=== PATIENT | male | born 1960 | race African-American/Black ===

== ENCOUNTER 2023-04-05 11:28 | Emergency (ER) | payer MEDICARE, MEDICAID ==
[~2023-04-05] VITALS: Ht 170.2 cm; Wt 110.0 kg
[~2023-04-05 11:28] MED LIST: CARV-50 PO; CLON-528 PO; KEP500T PO; MESA250C2 PO; PRED20TA PO; ZES10T PO
[2023-04-05 11:39] VITALS: BP 176/93; PULSE 88; RESP 18; TEMP 98; O2SAT 96
== END 2023-04-05 12:14 | disposition left against medical advice (07) ==
LOC: ER 11:29
DX: M79.604 Pain in right leg (principal); Z53.21 Procedure and treatment not carried out due to patient leaving prior to being seen by health care provider
CPT/HCPCS: 99281

== ENCOUNTER 2024-05-09 13:14 | Emergency (ER) | payer MEDICARE, MEDICAID ==
[~2024-05-09] VITALS: Ht 170.2 cm; Wt 87.0 kg
[~2024-05-09 13:14] MED LIST changes: -CLON-528 PO; +CLON-850 PO
[2024-05-09 13:25] VITALS: BP 148/85; PULSE 93; RESP 16; TEMP 98.4; O2SAT 97
== END 2024-05-09 14:50 | disposition left against medical advice (07) ==
LOC: ER 13:14
DX: M79.601 Pain in right arm (principal); Z53.21 Procedure and treatment not carried out due to patient leaving prior to being seen by health care provider; Z88.8 Allergy status to other drugs, medicaments and biological substances

== ENCOUNTER 2024-07-08 17:46 | Emergency (ER) | payer MEDICARE, MEDICAID ==
[~2024-07-08] VITALS: Ht 170.2 cm; Wt 90.7 kg
[2024-07-08 17:46] VITALS: BP 141/71; PULSE 98; RESP 16; TEMP 98.5; O2SAT 100
[2024-07-08] MEDS: cyclobenzaprine 10mg tablet PO STA (18:27)
[2024-07-08] MEDS ORDERED: METH-798 PO (18:31)
== END 2024-07-08 18:33 | disposition home or self-care (01) ==
LOC: ER 17:46
DX: M54.59 Other low back pain (principal); I25.2 Old myocardial infarction; I50.9 Heart failure, unspecified; J45.909 Unspecified asthma, uncomplicated; G89.29 Other chronic pain; F41.9 Anxiety disorder, unspecified; F32.A Depression, unspecified; F15.90 Other stimulant use, unspecified, uncomplicated; F11.90 Opioid use, unspecified, uncomplicated; Z88.5 Allergy status to narcotic agent; Z88.6 Allergy status to analgesic agent; Z88.8 Allergy status to other drugs, medicaments and biological substances; Z79.899 Other long term (current) drug therapy; W01.0XXA Fall on same level from slipping, tripping and stumbling without subsequent striking against object, initial encounter; Y93.E1 Activity, personal bathing and showering; Y92.89 Other specified places as the place of occurrence of the external cause; Y99.9 Unspecified external cause status
CPT/HCPCS: 99284; A4421

== ENCOUNTER 2024-07-31 08:16 | Emergency (ER) | payer MEDICARE, MEDICAID ==
[~2024-07-31] VITALS: Ht 172.7 cm; Wt 91.5 kg
[~2024-07-31 08:16] MED LIST changes: +METH-798 PO
[2024-07-31 09:51] VITALS: BP 140/86; PULSE 86; RESP 18; TEMP 97.8; O2SAT 97
== END 2024-07-31 09:59 | disposition home or self-care (01) ==
LOC: ER 08:17
DX: Z93.2 Ileostomy status (principal); I50.9 Heart failure, unspecified; J45.909 Unspecified asthma, uncomplicated; F41.9 Anxiety disorder, unspecified; F32.A Depression, unspecified; F15.90 Other stimulant use, unspecified, uncomplicated; F11.90 Opioid use, unspecified, uncomplicated; Z88.5 Allergy status to narcotic agent; Z88.6 Allergy status to analgesic agent; Z88.8 Allergy status to other drugs, medicaments and biological substances; Z98.890 Other specified postprocedural states
CPT/HCPCS: 99281; A4421

== ENCOUNTER 2024-08-14 21:14 | Emergency (ER) | payer MEDICARE, MEDICAID ==
[~2024-08-14] VITALS: Ht 177.8 cm; Wt 120.0 kg
[2024-08-14 21:27] VITALS: BP 158/98; PULSE 100; RESP 22; TEMP 98.2; O2SAT 96
== END 2024-08-14 22:32 | disposition left against medical advice (07) ==
LOC: ER 21:15
DX: Z93.3 Colostomy status (principal); Z53.21 Procedure and treatment not carried out due to patient leaving prior to being seen by health care provider
CPT/HCPCS: A4371; A4398

== ENCOUNTER 2024-10-31 15:28 | Emergency (ER) | payer MEDICARE, MEDICAID ==
[~2024-10-31] VITALS: Ht 170.2 cm; Wt 100.0 kg
[2024-10-31 15:31] VITALS: BP 160/104; PULSE 108; RESP 18; TEMP 98.6; O2SAT 98
== END 2024-10-31 20:58 | disposition left against medical advice (07) ==
LOC: ER 15:29
DX: Z00.8 Encounter for other general examination (principal); Z88.5 Allergy status to narcotic agent; Z88.8 Allergy status to other drugs, medicaments and biological substances; Z53.21 Procedure and treatment not carried out due to patient leaving prior to being seen by health care provider

== ENCOUNTER 2025-05-04 18:38 | Emergency (ER) | payer MEDICARE, MEDICAID ==
[~2025-05-04] VITALS: Ht 172.7 cm; Wt 81.8 kg
[~2025-05-04 18:38] MED LIST changes: -CARV-50 PO; +CARV3.122 PO; -CLON-850 PO; +INSU100I77 SQ; -KEP500T PO; +LEVE500T PO; +LEVE750T PO; +LISI10TA27 PO; -MESA250C2 PO; +METF-438 PO; -METH-798 PO; -PRED20TA PO; -ZES10T PO
[2025-05-04 18:52] VITALS: BP 146/92; PULSE 101; RESP 18; O2SAT 97
[2025-05-04 19:19] LABS: MEAN PLATELET VOLUME 8.1 FL (7.4-10.4); RED CELL DISTRIBUTION WIDTH 16.2 % (11.5-14.5)
[2025-05-04 19:34] LABS: CREATININE 1.28 MG/DL (0.60-1.10); TOTAL CARBON DIOXIDE 21.2 MMOL/L (24-32); eCRCL 56 ML/MIN; eGFR 68 ML/MIN
--- NOTE | 2025-05-04 21:25 | RADIOLOGY REPORT ---
EXAM: CT CT HEAD INDICATION: Change in mentation TECHNIQUE: CT images of the head were obtained without administration of IV contrast. CT scans at this facility use dose modulation, iterative reconstruction, and/or weight based dosing when appropriate to reduce radiation dose to as low as reasonably achievable. COMPARISON: None FINDINGS: PARENCHYMA: No acute hemorrhage. There is no mass effect, midline shift, or herniation. There is preservation of the farrar white differentiation. Mild scattered hypoattenuation along the periventricular, centrum semiovale, and deep white matter tracts, which are nonspecific however statistically most likely represent chronic microvascular ischemic change. VENTRICLES: No hydrocephalus. EXTRA-AXIAL SPACES: No extra-axial fluid collections. OTHER: The bony structures are intact. Visualized portions of the paranasal sinuses and mastoid air cells are clear. Degenerative change of bilateral temporomandibular joints. IMPRESSION: 1. No CT evidence of an acute intracranial abnormality.
[2025-05-04 23:08] LABS: ETHANOL < 10 MG/DL (<10)
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
[2025-05-05 00:25] VITALS: TEMP 97.6
== END 2025-05-05 00:45 | disposition home or self-care (01) ==
LOC: ER 18:39
DX: Z02.89 Encounter for other administrative examinations (principal); J45.909 Unspecified asthma, uncomplicated; I25.2 Old myocardial infarction; G89.29 Other chronic pain; I50.9 Heart failure, unspecified; F41.9 Anxiety disorder, unspecified; F32.A Depression, unspecified; F15.90 Other stimulant use, unspecified, uncomplicated; F11.90 Opioid use, unspecified, uncomplicated; Z88.5 Allergy status to narcotic agent; Z88.8 Allergy status to other drugs, medicaments and biological substances; Z79.899 Other long term (current) drug therapy; V89.2XXA Person injured in unspecified motor-vehicle accident, traffic, initial encounter; Y93.89 Activity, other specified; Y92.89 Other specified places as the place of occurrence of the external cause; Y99.8 Other external cause status
CPT/HCPCS: 36415; 70450; 80053; 82948; 85025; 99284; G0480; 80320

== ENCOUNTER 2025-06-03 12:53 | Emergency (ER) | payer MEDICARE, MEDICAID ==
[~2025-06-03] VITALS: Ht 182.9 cm; Wt 79.0 kg
[2025-06-03 12:55] VITALS: TEMP 98
--- NOTE | 2025-06-03 13:06 | Physician Documentation ---
History of Present Illness ~ Chief Complaint: See Chief Complaint Stated Complaint: SUBSTANCE ABUSE Time Seen by MD: 13:04 Primary Medical Doctor: [facility] This is a 64-year-old male who is brought to the emergency department per EMS after staff called due to concerns for smelling a strong strange smell in his room, finding a needle, finding evidence of marijuana use, concerned for meth use. The patient is in this facility for osteomyelitis of the left lower extremity. Staff there noted slurred speech and off behavior. He was brought from [facility]. Per EMS, negative stroke scale. Medication Reconciliation Allergies: Coded Allergies: codeine (Verified Allergy, Unknown, 10/31/24) morphine (Verified Allergy, Unknown, 10/31/24) nalbuphine HCl (Verified Allergy, Unknown, 10/31/24) naproxen (Verified Allergy, Unknown, 10/31/24) tramadol HCl (Verified Allergy, Unknown, 10/31/24) Scheduled Carvedilol (Carvedilol), 1 TAB PO BID, (Reported) Insulin Degludec (Insulin Degludec Pen (U-100)), 70 UNITS SQ HS, (Reported) Levetiracetam (Levetiracetam), 1 TAB PO BID, (Reported) Levetiracetam (Levetiracetam), 1 TAB PO BID, (Reported) Lisinopril (Lisinopril), 1 TAB PO DAILY, (Reported) Metformin HCl (Metformin HCl), 1 TAB PO BID, (Reported) Past Medical History Past Medical History: *CARDIOVASCULAR*, Congestive Heart Failure, Myocardial Infarction, Asthma, *GI/HEPATOBILIARY*, GI Bleed, Hernia, Chronic Pain, *INFECTIOUS DZ*, Anxiety, Depression Past Surgical History: abdominal surgery Alcohol Use: Rarely Drug Use: methamphetamine, heroin Review of Systems ROS As stated above in the HPI, otherwise all systems are reviewed and negative. Physical Exam Vital Signs: Temperature: 98.0, Source: Temporal, Heart Rate: 94, Respiratory Rate: 16, BP: 126/78, Pulse Oximetry: 98, Weight: 79.000 Oxygen Flow Rate: 0 Physical Exam General: Alert, no apparent distress. HEENT: PERRL, EOMI, no injection, moist mucous membranes. Neck: Full range of motion. Respiratory: Lungs clear, no respiratory distress. Chest: No accessory muscle use. Cardiovascular: Regular rate and rhythm, no murmurs. Gastrointestinal: Soft, nontender, nondistended. Bowels sounds present. Extremities: Normal range of motion, no deformity. Neurologic: Oriented x4. Psychiatric: Normal mood and affect. Skin: Normal color, warm and dry. No edema, no ecchymosis. Dressing LLE. Progress Results/Orders Results/Orders Orders - TAYLOR HANLEY NP Drug Screen, Urine (06/03/25 13:03) Urinalysis, Cult If Indicated (06/03/25 13:03) CMP (06/03/25 13:03) Cbc/Diff (06/03/25 13:03) Accucheck (06/03/25 ) Vital Signs 06/03/25 06/03/25 12:55 13:25 Temp 98.0 Pulse 94 85 Resp 16 18 B/P (MAP) 126/78 138/88 (105) Pulse Ox 98 98 O2 Flow Rate 0 Laboratory Tests Test 06/03/25 13:24 Glucometer 145 H Medical Decision Making Additional information obtaine: old records Findings EMS run sheet reviewed. Discussed patient care with fire extinguisher repairer who transported him. Differential Dx:Considerations: Include: other Additional Information Sent from his acute care facility primarily due to concerns for drug use. They reported that initially he was acting abnormally for them, deviation from his baseline. On exam, the patient was found to be alert, oriented, no focal deficits, no slurred speech, no concerns whatsoever. He declined a workup to include urinalysis and urine drug screen. Glucose was 141. Patient then departed the department, declining any further workup. Departure Time of Disposition: 13:27 Disposition: 01 HOME / SELF CARE / HOMELESS Impression: Primary Impression: Altered level of consciousness Condition: Stable Discharge Instructions: Altered Mental Status Additional Instructions: You were sent to the emergency department by your facility due to concerns for altered mental status. On exam, you were found to be alert and oriented with no focal deficits. Negative stroke scale. You are okay to return your facility. Your glucose was 141. Referrals: NO PRIMARY CARE PROVIDER (PCP) Education Educated: Patient Educated regarding: diagnosis, treatment, prognosis, need for follow up Signature Scribe Signature: x Attestation: The note accurately reflects work and decisions made by me.Taylor Mcnamara NP 06/03/25 13:59 TAYLOR HANLEY NP Jun 03, 2025 13:06
[2025-06-03 13:25] VITALS: BP 138/88; PULSE 85; RESP 18; O2SAT 98
== END 2025-06-03 13:51 | disposition home or self-care (01) ==
LOC: ER 12:53
DX: R40.4 Transient alteration of awareness (principal); G89.29 Other chronic pain; I25.2 Old myocardial infarction; I50.9 Heart failure, unspecified; F15.90 Other stimulant use, unspecified, uncomplicated; F11.90 Opioid use, unspecified, uncomplicated; F41.9 Anxiety disorder, unspecified; F32.A Depression, unspecified; Z88.5 Allergy status to narcotic agent; Z88.6 Allergy status to analgesic agent; Z88.8 Allergy status to other drugs, medicaments and biological substances; Z79.899 Other long term (current) drug therapy; Z79.4 Long term (current) use of insulin
CPT/HCPCS: 82948; 99283

== ENCOUNTER 2025-06-03 18:03 | Emergency (ER) | payer MEDICARE, MEDICAID ==
[~2025-06-03] VITALS: Ht 170.2 cm; Wt 94.0 kg
[2025-06-03] MEDS: normal saline 1000ML IV soln IVB ONE (18:40)
--- NOTE | 2025-06-03 19:04 | RADIOLOGY REPORT ---
EXAM: DI CHEST,SINGLE VIEW TECHNIQUE: Single frontal chest radiograph CLINICAL HISTORY: weakness COMPARISON: None FINDINGS/IMPRESSION: The lungs are clear. The cardiomediastinal silhouette is prominent, likely accentuated by technique. No pleural effusion or pneumothorax. No acute osseous abnormality.
--- NOTE | 2025-06-03 19:18 | Physician Documentation ---
History of Present Illness General Chief Complaint: See Chief Complaint Stated Complaint: CLOSTOMY BAG ISSUES Time Seen by MD: 18:14 Primary Medical Doctor: GEOVANNA Mode of Arrival: EMS History of Present Illness Initial Comments History, review of systems, physical examination are very limited due to patient's non participation versus patient's clinical condition. Evidently this patient see that here earlier today and subsequently discharged. [place] was [place] in [place] He is brought in for evaluation of seizure-like activity. Evidently the patient is supposed to go back to [facility], appears [place]. The patient mumbles, twitching, nearly impossible to understand, does not seem to answer any questions, able follow commands. Medication Reconciliation Allergies: Coded Allergies: codeine (Verified Allergy, Unknown, 10/31/24) morphine (Verified Allergy, Unknown, 10/31/24) nalbuphine HCl (Verified Allergy, Unknown, 10/31/24) naproxen (Verified Allergy, Unknown, 10/31/24) tramadol HCl (Verified Allergy, Unknown, 10/31/24) Scheduled Carvedilol (Carvedilol), 1 TAB PO BID, (Reported) Insulin Degludec (Insulin Degludec Pen (U-100)), 70 UNITS SQ HS, (Reported) Levetiracetam (Levetiracetam), 1 TAB PO BID, (Reported) Levetiracetam (Levetiracetam), 1 TAB PO BID, (Reported) Lisinopril (Lisinopril), 1 TAB PO DAILY, (Reported) Metformin HCl (Metformin HCl), 1 TAB PO BID, (Reported) Past Medical History Past Medical History: *CARDIOVASCULAR*, Congestive Heart Failure, Myocardial In farction, Asthma, *GI/HEPATOBILIARY*, GI Bleed, Hernia, Chronic Pain, *INFECTIOUS DZ*, Anxiety, Depression Past Surgical History: abdominal surgery Smoking: Cigarettes Alcohol Use: Rarely Drug Use: methamphetamine, heroin Review of Systems ROS Limited as above Physical Exam Physical Exam Vital Signs: Temperature: 97.6, Source: Axillary, Heart Rate: 90, Respiratory Rate: 16, BP: 132/85, Pulse Oximetry: 97, Weight: 94.000 Oxygen Flow Rate: 0 Physical Exam GENERAL: Awake but rather somnolent, no apparent distress, chronically ill appearing, does not really answer questions, does follows commands appropriately. Examined in bed 11. HEENT: Atraumatic, normocephalic, pupils equal, extraocular muscles intact, sclerae anicteric, mucus membranes moist, oropharynx is clear, no stridor. NECK: supple, full active range of motion, trachea midline, no thyromegaly, no lymphadenopathy, no JVD. CARDIOVASCULAR: regular rate/rhythm, no murmurs/gallops/rubs, Pulses are 2+ in all extremities and symmetric. Capillary refill less than 2 seconds. PULMONARY: Nonlabored, good air movement ,no respiratory distress, speaking in full sentences, clear to auscultation bilaterally, no wheezing, no ronchi, no rales, no accessory muscle use. GASTROINTESTINAL: Soft, non-tender, non-distended, normal active bowel sounds, no organomegaly, no pulsatile masses, no CVA tenderness. NEUROLOGIC: Awake with altered versus postictal mental status. Normal facial symmetry. Moves all extremities symmetrically and with purpose. No truncal ataxia. Speech is fluid without evidence of dysarthria or aphasia, no focal deficits appreciated. MUSCULOSKELETAL: There is full range of motion of all extremities. There is no joint pain or joint swelling or joint erythema. There is no muscle pain or tenderness or swelling. EXTREMITIES: warm, well-perfused, no cyanosis, no clubbing, no edema, no acute deformities. Skin: warm, dry, no rashes or lesions, no jaundice, no petechiae orpurpura. No ecchymosis. PSYCHIATRIC: Unable to assess Focused exam: Left lower extremity colostomy noted. Multiple prior well-healed surgical scars including scar from ileostomy noted. Progress Results/Orders Results/Orders Orders - JAYA RICHARDS DO Drug Screen, Urine (06/03/25 18:38) Urinalysis, Cult If Indicated (06/03/25 18:38) Chest,Single View (06/03/25 18:38) Monitor (06/03/25 18:38) Saline Lock (06/03/25 18:38) Ct Head (06/03/25 18:38) Completed Orders - JAYA RICHARDS DO Electrocardiogram (06/03/25 18:38) Cbc/Diff (06/03/25 18:38) Pt Inr (06/03/25 18:38) PTT (06/03/25 18:38) Chest,Single View (06/03/25 18:38) Normal Saline 1000ml (0.9% Sodium Chlori (06/03/25 18:40) Ct Head (06/03/25 18:38) Hs Troponin I W Calculations (06/03/25 18:38) Hs Troponin I W Calculations (06/03/25 20:38) CMP (06/03/25 20:18) Ethanol (06/03/25 20:18) MG (06/03/25 20:18) PBNP (06/03/25 20:18) Medications Received in ER Medications (Trade) Dose Ordered Sig/Lucius Route PRN Reason Start Time Stop Time Status Last Admin Dose Admin (0.9% sodium chloride (NS) 1000ml IV soln) 1,000 ml ONCE ONCE IVB 06/03/25 18:40 06/03/25 18:42 DC 06/03/25 18:40 1,000 ML Vital Signs 06/03/25 06/03/25 06/03/25 06/03/25 18:13 18:22 18:45 20:39 Temp 97.6 97.6 Pulse 90 93 Resp 19 16 12 14 B/P (MAP) 132/85 133/85 (101) Pulse Ox 97 96 O2 Flow Rate 0 0 Laboratory Tests Test 06/03/25 19:39 06/03/25 20:38 White Blood Count 4.0 L Red Blood Count 4.11 L Hemoglobin 12.1 L Hematocrit 35.5 L Mean Corpuscular Volume 86.4 Mean Corpuscular Hemoglobin 29.5 Mean Corpuscular Hemoglobin Concent 34.2 Red Cell Distribution Width 14.9 H Platelet Count 93 L Mean Platelet Volume 8.8 Neutrophils (%) (Auto) 55.8 Lymphocytes (%) (Auto) 29.6 Monocytes (%) (Auto) 7.5 Eosinophils (%) (Auto) 6.4 H Basophils (%) (Auto) 0.7 Neutrophils # (Auto) 2.2 Lymphocytes # (Auto) 1.2 Monocytes # (Auto) 0.3 Eosinophils # (Auto) 0.3 Basophils # (Auto) 0.0 CBC Comment Prothrombin Time 10.7 INR International Normalized Ratio 1.0 Activated Partial Thromboplast Time 29 Coagulation Comments Troponin I High Sensitivity 11 12 Sodium Level 141 Potassium Level 4.4 Chloride Level 106 Carbon Dioxide Level 24.8 Anion Gap 10 Blood Urea Nitrogen 24 H Creatinine 1.19 H Estimated GFR/1.73 m2 74 BUN/Creatinine Ratio 20.2 H Glucose Level 162 H Calcium Level 8.9 Magnesium Level 1.8 Total Bilirubin 0.6 Aspartate Amino Transf (AST/SGOT) 22 Alanine Aminotransferase (ALT/SGPT) 25 Alkaline Phosphatase 95 Troponin I High Sens Percent Delta 9 Troponin I Hi Sens Absolute Change 1 Pro-B-Type Natriuretic Peptide 86 Total Protein 8.0 Albumin 3.5 Globulin 4.5 H Albumin/Globulin Ratio 0.8 L Chemistry Comments Ethyl Alcohol Level < 10 EKG/XRAY/CT/US/VASC/MRI EKG : Additional Comment EKG was obtained and interpreted by myself showing sinus rhythm, rate of 86, normal CA interval, narrow QRS, no QT prolongation, borderline left axis, no STEMI, polymorphic PVC is noted. Q-wave in three and AVF noted. Medical Decision Making Additional information obtaine: old records, other (EMS) Findings Facility Status: ED Holds, RME process The plan was discussed with the patient, who demonstrates clear understanding of the plan and is in agreement with the plan unless otherwise noted in the chart. All questions have been answered, all concerns were addressed unless otherwise documented. I was available throughout their ED stay for frequent reassessment and questions. Differential Diagnoses (considered and possible or likely): [Breakthrough seizure, postictal state, dehydration, electrolyte derangement, alcohol intoxication, drug toxidrome, intracranial neoplasm, subdural, subarachnoid, urinary tract infection, pneumonia, occult bacteremia, less likely meningitis or encephalitis] ??Differential Diagnoses (considered and unlikely, not requiring evaluation currently): [No evidence of lateralizing signs to suspect a stroke] MDM Data Please see HPI for the following: Independent Historians and external Records Review. Historian: Limited information from patient Independent Historians: ?[EMS, record review] Medication Management: [Reviewed medication list] Social History and determinants: [Reviewed] Please see the body of the note for the following: Any independent interpretations of ECG, imaging studies. All vitals signs/haemodynamics, ordered tests were independently reviewed and interpreted by myself. Nursing triage complaint and vitals reviewed, additional nursing notes were rev iewed as available and I agree unless otherwise noted or documented in contradiction in the chart Vital Signs: Independently reviewed Labs: Independently interpreted Imaging: Independently interpreted Old Medical Records: Independently reviewed, see HPI for relevant summary and information Pulse Oximetry: [98%] interpreted as [normal on room air] by me [Ict Security Specialist: [Regular Rate, Regular rhythm, no ectopy, NSR] reviewed and interpreted by me] Additionally notably showing: [Hemodynamics reviewed. The patient isn't febrile, not tachycardic, no evidence of hypotension respiratory distress. CBC shows no leukocytosis, normal hemoglobin, slightly decreased platelets. Coagulation panel was unremarkable. Chemistry notable for dehydration. Initial repeat troponins are negative. Ethanol is negative. Advanced imaging of the head did not reveal any acute intracranial process. Chest x-ray is unremarkable.] Tests considered but not ordered include: [Not applicable] Social Determinants of Health Impact: Patient was evaluated in [facility] [place] to healthcare due to below par ratio of patient to medical providers. [] Comorbid Conditions Impacting Present Evaluation and Care/Treatment: [History of seizures] Management Discussions with other Healthcare Providers: [None] Treatment and Disposition Medication Management (Given or considered): []. See EMR for details Consideration for Hospitalization/Escalation/Deescalation of Care: Admission for observation has been considered, [however the patient is able to tolerate p.o., their symptoms are controlled, they are able to rely on oral medications, and their chief complaint/diagnosis can be managed on outpatient basis.] ?ED Course:?[The patient's mentation had markedly improved. He is back to baseline. He refuses to provide us with a urine sample.] ?Shared decision making: Patient is hemodynamically stable for discharge home with follow with their primary care provider. [ ] Specific and cautious return precautions provided and discussed with full understanding. Any incidental findings were also discussed and follow up recommendations given. [] All questions answered. Patient/family were able to verbalize back return precautions. Patient/family agree to plan. Copies of imaging and laboratory studies were provided. Code status:?FULL Please see the full Electronic Medical Record for full details of nursing documentation, medications list, other records of complete past medical history and conditions, vital signs, laboratory studies, and any radiologic study interpretations by radiologists. Portions of this note were completed using [employer] dictation software and as a result there may exist minor errors in spelling. I have reviewed elements of past family and social history and agree as included in note. Differential Diagnosis See body of main note for differential diagnosis Departure Impression: Primary Impression: Transient alteration of awareness Additional Impressions: Dehydration Breakthrough seizure Condition: Improved Discharge Instructions: Confusion Referrals: NO PRIMARY CARE PROVIDER (PCP) Education Educated: Patient Educated regarding: diagnosis, treatment, prognosis, need for follow up Signature Scribe Signature: No scribe Attestation: The note accurately reflects work and decisions made by me.Jaya Richards, 06/03/25 19:18 JAYA RICHARDS DO Jun 03, 2025 19:18
--- NOTE | 2025-06-03 19:31 | RADIOLOGY REPORT ---
EXAM: CT CT HEAD INDICATION: aloc/seizure TECHNIQUE: CT of the head without intravenous contrast. Radiation Dose Information: CT Dose: CTDI volume is 65.8 mGy. Dose-length product is 1274.4 mGy*cm The dose indicators for CT are the volume Computed Tomography (CT) Dose Index (CTDIvol) and the Dose Length Product (DLP), and are measured in units of mGy and mGy-cm, respectively. These indicators are not patient dose, but values generated from the CT scanner acquisition factors. The report includes radiation exposure data for exposures received during this examination. COMPARISON: CT CT HEAD on DOS: FINDINGS: No acute territorial infarct, intracranial hemorrhage, or mass effect. There are global involutional changes with compensatory prominence of the ventricles and sulci. Patchy periventricular and subcortical white matter hypoattenuation is nonspecific but may be related to small vessel ischemic disease. The orbits are normal. The paranasal sinuses and mastoid air cells are clear. The osseous structures are unremarkable. IMPRESSION: 1. No acute territorial infarct, intracranial hemorrhage, or mass effect. 2. Age-related involutional changes. Chronic microvascular changes. 3. If clinical symptoms persist, MRI may be beneficial in further evaluation.
--- NOTE | 2025-06-03 19:47 | ELECTROCARDIOGRAPH REPORT ---
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 BEBE Sanford Measurements Intervals [place] Rate: 86 P: 29 HI: 200 QRS: -25 QRSD: 98 T: 51 QT: 398 QTc: 476 Interpretive Statements Sinus rhythm Multiform ventricular premature complexes Abnormal R-wave progression, late transition Inferior infarct, old Electronically Signed On 06-05-2025 18:39:[address] BEBE Sanford Please click the below link to view image of tracing.
[2025-06-03 20:18] LABS: MEAN PLATELET VOLUME 8.8 FL (7.4-10.4); RED CELL DISTRIBUTION WIDTH 14.9 % (11.5-14.5)
[2025-06-03 20:28] LABS: APTT 29 SECONDS (22-32); INR 1.0 INR
[2025-06-03 22:24] LABS: CREATININE 1.19 MG/DL (0.60-1.10); TOTAL CARBON DIOXIDE 24.8 MMOL/L (24-32); eCRCL 58 ML/MIN; eGFR 74 ML/MIN
[2025-06-03 22:29] LABS: PRO BRAIN NATRIURETIC PEPTIDE 86 PG/ML (0-125)
[2025-06-03 22:31] LABS: ETHANOL < 10 MG/DL (<10)
[2025-06-03 23:30] VITALS: BP 130/81; PULSE 91; RESP 18; O2SAT 96
[2025-06-04 00:11] VITALS: TEMP 97.6
== END 2025-06-04 00:16 | disposition home or self-care (01) ==
LOC: ER 18:04
DX: G40.909 Epilepsy, unspecified, not intractable, without status epilepticus (principal); E86.0 Dehydration; R40.4 Transient alteration of awareness; G89.29 Other chronic pain; I25.2 Old myocardial infarction; I50.9 Heart failure, unspecified; F17.210 Nicotine dependence, cigarettes, uncomplicated; F15.90 Other stimulant use, unspecified, uncomplicated; F11.90 Opioid use, unspecified, uncomplicated; F41.9 Anxiety disorder, unspecified; F32.A Depression, unspecified; Z88.5 Allergy status to narcotic agent; Z88.8 Allergy status to other drugs, medicaments and biological substances; Z79.899 Other long term (current) drug therapy; Z79.84 Long term (current) use of oral hypoglycemic drugs
CPT/HCPCS: 36415; 70450; 71045; 80053; 83735; 83880; 84484; 85025; 85610; 85730; 93005; 96360; 99285; A4421; G0480; J7030; 80320

== ENCOUNTER 2025-06-19 16:20 | Emergency (ER) | payer MEDICARE, MEDICAID ==
[~2025-06-19] VITALS: Ht 182.9 cm; Wt 108.0 kg
--- NOTE | 2025-06-19 16:34 | Physician Documentation ---
History of Present Illness General Stated Complaint: POISIONING/ SEIZURE Time Seen by MD: 16:34 Primary Medical Doctor: [facility] History of Present Illness Initial Comments 64 year old male with history of seizures presents to the emergency department via EMS brought in from [facility]. EMS states that the story that they were given is that the patient went to the bathroom and left his water bottle in the lobby. When he returned he drank the water and reported feeling drugged. Per EMS bystanders endorse that the patient had a change of behavior since his arrival at the [facility]. When asked the patient complains of abdominal pain, stating that he has been feeling sick. Additionally the patient complains of fevers. Medication Reconciliation Allergies: Coded Allergies: codeine (Verified Allergy, Unknown, 10/31/24) morphine (Verified Allergy, Unknown, 10/31/24) nalbuphine HCl (Verified Allergy, Unknown, 10/31/24) naproxen (Verified Allergy, Unknown, 10/31/24) tramadol HCl (Verified Allergy, Unknown, 10/31/24) Scheduled Carvedilol (Carvedilol), 1 TAB PO BID, (Reported) Insulin Degludec (Insulin Degludec Pen (U-100)), 70 UNITS SQ HS, (Reported) Levetiracetam (Levetiracetam), 1 TAB PO BID, (Reported) Levetiracetam (Levetiracetam), 1 TAB PO BID, (Reported) Lisinopril (Lisinopril), 1 TAB PO DAILY, (Reported) Metformin HCl (Metformin HCl), 1 TAB PO BID, (Reported) Past Medical History Past Medical History: *CARDIOVASCULAR*, Congestive Heart Failure, Myocardial Infarction, Asthma, *GI/HEPATOBILIARY*, GI Bleed, Hernia, Chronic Pain, *INFECTIOUS DZ*, Anxiety, Depression Past Surgical History: abdominal surgery Smoking: Cigarettes Alcohol Use: Rarely Drug Use: methamphetamine, heroin Review of Systems All Other Systems at this time: Reviewed and Negative ROS Patient was asked, but denied any other symptoms. All other systems are negative other than those mentioned above. Physical Exam Physical Exam Vital Signs: RN Vital Signs have been reviewed: Yes Pulse Oximetry Reflects: adequate oxygenation Physical Exam VITALS: Reviewed and as above. GENERAL: Alert, no apparent distress. HEENT: Normocephalic, atraumatic. PERRL, EOMI. Dry mucosa, no erythema. RESPIRATORY: Lungs clear, normal breath sounds, no respiratory distress. CHEST: No accessory muscle use, no retractions. CV: Tachycardic, regularlyy irregular. No edema, no murmur, No: JVD GI: Soft,diffuse tenderness with left cholostomy bag. bowel sounds present. No rebound, guarding, or rigidity. BACK: No CVA tenderness, no swelling. MUSCULOSKELETAL: No deformities, no edema SKIN: Warm and dry, no rash. NEURO: Mild osteroneal tremors with gargled speech. PSYCH: Normal mood and affect, no agitation. Progress Results/Orders Results/Orders Completed Orders - EROS CENTENO MD Diazepam Inj (Valium Inj) (06/19/25 19:00) Potassium Cl Sr Tablet (K-Dur Tablet) (06/19/25 19:45) Medications Received in ER Medications (Trade) Dose Ordered Sig/Lucius Route PRN Reason Start Time Stop Time Status Last Admin Dose Admin (0.9% sodium chloride (NS) 1000ml IV soln) 2,000 ml ONCE ONCE IVB 06/19/25 16:40 06/19/25 16:41 DC 06/19/25 17:33 2,000 ML Acetaminophen 100 ml @ 400 mls/hr ONCE ONCE IV 06/19/25 16:40 06/19/25 16:54 DC 06/19/25 17:20 400 MLS/HR Sodium Chloride 1,000 ml @ 1,000 mls/hr ONCE ONCE IV 06/19/25 16:40 06/19/25 17:39 DC 06/19/25 17:20 1,000 MLS/HR Levetiracetam 100 ml @ 400 mls/hr ONCE STAT IV 06/19/25 16:46 06/19/25 17:00 DC 06/19/25 17:33 400 MLS/HR (K-DUR tablet) 20 meq ONCE STAT PO 06/19/25 19:45 06/19/25 19:47 DC 06/19/25 19:59 20 MEQ Vital Signs 06/19/25 06/19/25 06/19/25 06/19/25 16:29 16:30 16:37 17:00 Temp 102.3 Pulse 126 112 109 Resp 27 20 15 16 B/P (MAP) 133/81 133/81 (98) 142/107 (119) Pulse Ox 94 97 96 O2 Flow Rate 0 06/19/25 06/19/25 06/19/25 06/19/25 17:26 17:46 17:51 18:00 Temp 98.3 Pulse 117 106 106 Resp 31 18 29 B/P (MAP) 137/71 (93) 141/73 (95) 143/74 (97) Pulse Ox 96 98 97 97 O2 Delivery Nasal Cannula* O2 Flow Rate 2 FiO2 N/A 06/19/25 06/19/25 06/19/25 06/19/25 18:15 18:43 19:01 19:16 Pulse 106 103 114 110 Resp 24 18 16 16 B/P (MAP) 128/70 (89) 114/60 (78) 131/65 (87) 119/80 (93) Pulse Ox 97 98 97 100 O2 Flow Rate 0 0 0 06/19/25 06/19/25 06/19/25 19:30 19:41 20:12 Temp 99.3 Pulse 95 108 107 Resp 17 27 16 B/P (MAP) 172/97 (122) 166/99 (121) 140/56 Pulse Ox 96 100 98 O2 Flow Rate 0 0 Laboratory Tests Test 06/19/25 17:03 06/19/25 17:17 06/19/25 18:35 06/19/25 18:51 Lactic Acid Level 1.6 White Blood Count 6.0 Red Blood Count 4.00 L Hemoglobin 11.3 L Hematocrit 34.9 L Mean Corpuscular Volume 87.2 Mean Corpuscular Hemoglobin 28.3 Mean Corpuscular Hemoglobin Concent 32.5 L Red Cell Distribution Width 16.4 H Platelet Count 253 Mean Platelet Volume 7.8 Neutrophils (%) (Auto) 89.7 H Lymphocytes (%) (Auto) 5.7 L Monocytes (%) (Auto) 3.2 Eosinophils (%) (Auto) 1.0 Basophils (%) (Auto) 0.4 Neutrophils # (Auto) 5.4 Lymphocytes # (Auto) 0.3 L Monocytes # (Auto) 0.2 Eosinophils # (Auto) 0.1 Basophils # (Auto) 0.0 CBC Comment Sodium Level 140 Potassium Level 3.1 L Chloride Level 107 Carbon Dioxide Level 25.5 Anion Gap 8 Blood Urea Nitrogen 16 Creatinine 1.18 H Estimated GFR/1.73 m2 75 BUN/Creatinine Ratio 13.6 Glucose Level 55 L Calcium Level 8.6 Troponin I High Sensitivity 21 Pro-B-Type Natriuretic Peptide 975 H Albumin 3.1 L Procalcitonin 0.20 Chemistry Comments Ethyl Alcohol Level < 10 Influenza Type A Antigen Negative Influenza Type B Antigen Negative Glucometer 66 L Test 06/19/25 19:16 06/19/25 19:18 Glucometer 128 H Urine Specimen Description Non-specified Urine Color Yellow Urine Clarity Clear Urine pH 5.5 Urine Specific [place] 1.015 Urine Protein Negative Urine Glucose (UA) Negative Urine Ketones Negative Urine Occult Blood Negative Urine Nitrite Negative Urine Bilirubin Negative Urine Urobilinogen 0.2 Urine Leukocyte Esterase Negative Urine Culture Indicated Not ind Volume Urine Centrifuged 10 ml Urine Comment Urine Opiates Screen Negative Urine Methadone Screen Negative Urine Fentanyl Screen Negative Urine Barbiturates Screen Negative Urine Phencyclidine Screen Negative Urine Amphetamines Screen Positive Urine Benzodiazepines Screen Negative Urine Cocaine Screen Negative Urine Cannabinoids Screen Negative Drug Screen Comment Microbiology Date/Time Source Procedure Growth Status 06/19/25 17:17 Blood Iv Start Blood Culture - Preliminary NEGATIVE (LESS THAN 24 HOURS) Resulted EKG/XRAY/CT/US/VASC/MRI EKG : Additional Comment 1636[facility] ssinus rhythym with pvc at a rate of 122bpm. PVCs present with right axis deviation. No ST abnormalities. Chest X-Ray : Interpreted By: radiologist Views: 1 VIEW Additional Comments EXAM: DI CHEST,SINGLE VIEW TECHNIQUE: Single frontal chest radiograph CLINICAL HISTORY: ALOC COMPARISON: DI CHEST,SINGLE VIEW on DOS: 06/03/25 FINDINGS/IMPRESSION: Artifact is seen overlying the lung apices referable to patient's chain. Unchanged prominent cardiomediastinal silhouette. The lungs are clear. No pleural effusion or pneumothorax. No acute osseous abnormality. Electronically Signed by:LUH SO MD Date & Time: 06/19/251736 Dictated by: LUH SO MD Dictation date and time: 06/19/251736 Primary Care Provider: NO PRIMARY CARE PROVIDER cc: BOBBI CHOW MD ~ Medical Decision Making Additional information obtaine: old records Findings Patient presents to the emergency room with agitation and fever as per HPI. Differentials include but are not limited to meningitis, influenza, viral illness, urinary tract infection, drug intoxication therefore emergent labs ordered which were reassuring aside from elevation patient's temperature and positive amphetamines. He has presented similarly previously and refused to give urine and I suspect that he does not engage in recreational amphetamines and this is why he is here today. Urinalysis is clear as that has chest x-ray and I can not find a bacterial source for patient's infection and I believe this is viral in nature. Flu negative. No meningismus on physical exam Differential Diagnosis j Departure Impression: Primary Impression: Fever Qualified Codes: R50.9 - Fever, unspecified Additional Impressions: Confusion Positive amphetamine Condition: Stable Discharge Instructions: Fever, Adult Additional Instructions: Tylenol for fevers aches and pains. Referrals: NO PRIMARY CARE PROVIDER (PCP) Signature Scribe Signature: no scribe Attestation: The note accurately reflects work and decisions made by me.Eros Centeno MD 06/19/25 21:54 BOBBI CHOW MD Jun 19, 2025 16:34 DENG KOEHLER Jun 19, 2025 19:50 EROS CENTENO MD Jun 19, 2025 20:52
[2025-06-19] MEDS ORDERED: acetaminophen 1,000mg/100ml IV 100 ML IV ONE (16:40)
[2025-06-19] MEDS: acetaminophen 1,000mg/100ml IV 100 ML IV ONE (17:20)
[2025-06-19] MEDS: normal saline 1000ml 1,000 ML IV ONE (17:20)
[2025-06-19 17:27] LABS: MEAN PLATELET VOLUME 7.8 FL (7.4-10.4); RED CELL DISTRIBUTION WIDTH 16.4 % (11.5-14.5)
[2025-06-19] MEDS: normal saline 1000ML IV soln IVB ONE (17:33)
[2025-06-19] MEDS: levetiracetam-NACL1000mg/100ml 100 ML IV STA (17:33)
--- NOTE | 2025-06-19 17:40 | RADIOLOGY REPORT ---
EXAM: DI CHEST,SINGLE VIEW TECHNIQUE: Single frontal chest radiograph CLINICAL HISTORY: ALOC COMPARISON: DI CHEST,SINGLE VIEW on DOS: 06/03/25 FINDINGS/IMPRESSION: Artifact is seen overlying the lung apices referable to patient's chain. Unchanged prominent cardiomediastinal silhouette. The lungs are clear. No pleural effusion or pneumothorax. No acute osseous abnormality.
[2025-06-19 17:50] LABS: CREATININE 1.18 MG/DL (0.60-1.10); ETHANOL < 10 MG/DL (<10); PRO BRAIN NATRIURETIC PEPTIDE 975 PG/ML (0-125); TOTAL CARBON DIOXIDE 25.5 MMOL/L (24-32); eCRCL 69 ML/MIN; eGFR 75 ML/MIN
[2025-06-19] MEDS: diazepam inj 5 MG/ML inj. IV ONE (19:00)
[2025-06-19 19:11] LABS: INFLUENZA TYPE A ANTIGEN RAPID NEGATIVE (Negative); INFLUENZA TYPE B ANTIGEN RAPID NEGATIVE (Negative)
[2025-06-19 19:37] LABS: URINE AMPHETAMINE SCREEN POSITIVE (Neg); URINE BARBITUATE SCREEN NEGATIVE (Neg); URINE BENZODIAZEPINES SCREEN NEGATIVE (Neg); URINE CANNABINOID SCREEN NEGATIVE (Neg); URINE COCAINE SCREEN NEGATIVE (Neg); URINE METHADONE SCREEN NEGATIVE (Neg); URINE OPIATE SCREEN NEGATIVE (Neg); URINE PHENCYCLIDINE SCREEN NEGATIVE (Neg)
[2025-06-19 19:40] LABS: LEUKOCYTE ESTERASE ,URINE NEGATIVE (Neg); NITRITES, URINE NEGATIVE (Neg); OCCULT BLOOD,URINE NEGATIVE (Neg)
[2025-06-19 19:41] VITALS: TEMP 99.3
[2025-06-19 19:42] LABS: UA COLLECTION TYPE NON-SPECIFIED
[2025-06-19] MEDS: potassium Cl 20 mEq SR tablet PO STA (19:59)
[2025-06-19 20:12] VITALS: BP 140/56; PULSE 107; RESP 16; O2SAT 98
--- NOTE | 2025-06-20 07:50 | ELECTROCARDIOGRAPH REPORT ---
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 Spenser Lin Measurements Intervals [place] Rate: 122 P: 0 CO: 0 QRS: 112 QRSD: 113 T: -12 QT: 320 QTc: 456 Interpretive Statements Atrial fibrillation Ventricular tachycardia, unsustained Low voltage, extremity leads Probable anteroseptal infarct, old Electronically Signed On 06-20-2025 21:13:[address] Spenser Lin Please click the below link to view image of tracing.
== END 2025-06-19 20:49 | disposition home or self-care (01) ==
LOC: ER 16:20
DX: R50.9 Fever, unspecified (principal); R41.0 Disorientation, unspecified; G89.29 Other chronic pain; I25.2 Old myocardial infarction; I47.20 Ventricular tachycardia, unspecified; I48.91 Unspecified atrial fibrillation; F15.90 Other stimulant use, unspecified, uncomplicated; F11.90 Opioid use, unspecified, uncomplicated; F17.210 Nicotine dependence, cigarettes, uncomplicated; I50.9 Heart failure, unspecified; Z88.5 Allergy status to narcotic agent; Z88.6 Allergy status to analgesic agent; Z88.8 Allergy status to other drugs, medicaments and biological substances; Z79.4 Long term (current) use of insulin; Z79.899 Other long term (current) drug therapy
CPT/HCPCS: 36415; 71045; 80048; 80305; 81003; 82948; 83605; 83880; 84145; 84484; 85025; 87040; 87804; 93005; 96361; 96374; 96375; 99285; A4415; A4615; A6258; A6402; A6590; C1758; G0480; J0131; J1953; J7030; 80320; A6449